=== PATIENT | male | born 1965 | race Caucasian/White ===

== ENCOUNTER 2019-01-25 06:09 | Day surgery (SDC) | payer OTHER ==
[~2019-01-25] VITALS: Ht 170.2 cm; Wt 90.4 kg
[2019-01-25] MEDS ORDERED: OMEPRAZOLE (06:56)
[2019-01-25] MEDS ORDERED: ATORVASTATIN (06:56)
[2019-01-25] MEDS ORDERED: BENAZEPRIL (06:56)
[2019-01-25] MEDS ORDERED: ASPIRIN (06:56)
[2019-01-25 07:08] VITALS: Ht 170.2 cm; Wt 90.4 kg
[2019-01-25 07:22] VITALS: BP 119/79; PULSE 54; PULSE 58; RESP 18
--- NOTE | 2019-01-25 07:32 | PREAC ---
Date/Time of Note Date/Time of Note DATE: 01/25/19 TIME: 07:31 Anesthesia Eval and Record Evaluation Time Pre-Procedure Interview DATE: 01/25/19 TIME: 07:31 Age 53 Sex male NPO: 8 hrs Preoperative diagnosis screening Planned procedure colonoscopy Past Medical History Past Medical History: Includes Cardio: HTN, Dyslipidemia Neuro: CVA GI: GERD Surgery & Anesthesia Issues No known issue Meds Anticoagulation: No Beta Aristeo within 24 hr: No Reason Beta Aristeo not given: Pt. not on B-Aristeo Reported Medications [Omeprazole] No Conflict Check 01/25/19 [Benazepril] No Conflict Check 01/25/19 [Atorvastatin] No Conflict Check 01/25/19 [Aspirin] No Conflict Check 01/25/19 Meds reviewed: Yes Allergies Coded Allergies: No Known Allergy (Unverified , 01/25/19) Allergies Reviewed: Yes Labs/Studies Labs Reviewed: Reviewed by anesthesiologist test: N/A Pre-procedure Exam Last vitals Vital Signs Date Temp Pulse Resp B/P (MAP) Pulse Ox O2 O2 Flow FiO2 Time Delivery Rate 01/25/19 97.3 54 18 Room Air 07:22 Airway: Adequate mouth opening, Adequate thyromental dist Mallampati: Mallampati II Teeth: Normal Lung: Normal Heart: Normal ASA Physical Status ASA physical status: 3 Emergency: None Planned Anesthetic General/MAC: Mask Planned Pain Management Parenteral pain med Pre-operative Attestations Prior to commencing anesthesia and surgery, the patient was re-evaluated, there was verification of: *The patient's identity *The results of appropriate recent lab work and preoperative vital signs *The above evaluation not changing prior to induction *Anesthetic plan, risk benefits, alternative and complications discussed with patient/family; questions answered; patient/family understands, accepts and wishes to proceed. MALGORZATA TAPIA MD Jan 25, 2019 07:32
[2019-01-25] MEDS ORDERED: LIDOCAINE 2% (SDV) 5 ML INJ ONE (07:36)
[2019-01-25] MEDS ORDERED: PROPOFOL 40 ML ONE (07:36)
[2019-01-25] MEDS ORDERED: ONDANSETRON 4 MG INJ IV PRN (08:00)
[2019-01-25] MEDS ORDERED: PROPOFOL 20 ML ONE (08:07)
--- NOTE | 2019-01-25 08:07 | PAC ---
Date/Time of Note Date/Time of Note DATE: 01/25/19 TIME: 08:06 Post-Anesthesia Notes Post-Anesthesia Note Last documented vital signs Vital Signs Date Temp Pulse Resp B/P (MAP) Pulse Ox O2 O2 Flow FiO2 Time Delivery Rate 01/25/19 97.3 58 18 119/79 98 Room Air 07:22 (92) Activity: WNL Respiratory function: WNL Cardiovascular function: WNL Mental status: Baseline Pain reasonably controlled: Yes Hydration appropriate: Yes Nausea/Vomiting absent: Yes Comments BP: 98/62 HR: 63 RR: 15 SaO2: 98% T: 98 MALGORZATA TAPIA MD Jan 25, 2019 08:07
[2019-01-25 08:27] VITALS: BP 117/76; PULSE 59; RESP 21
== END 2019-01-25 10:05 | disposition home or self-care (01) ==
LOC: GIL 06:09
PROVIDERS: ATTEND Internal Medicine Gastroenterology
DX: Z12.11 Encounter for screening for malignant neoplasm of colon (principal); K64.9 Unspecified hemorrhoids; I10 Essential (primary) hypertension; E78.5 Hyperlipidemia, unspecified; Z86.73 Personal history of transient ischemic attack (TIA), and cerebral infarction without residual deficits; Z79.82 Long term (current) use of aspirin